=== PATIENT | male | born 2000 | race Caucasian/White ===

== ENCOUNTER 2025-05-01 11:07 | Emergency (ER) | payer OTHER, SELFPAY ==
[2025-05-01 11:27] VITALS: BP 149/99; PULSE 81; RESP 19; TEMP 36.7; O2SAT 98; BMI 25.2
--- NOTE | 2025-05-01 11:47 | XR_ITS ---
FINAL REPORT TECHNIQUE: 2 view chest CLINICAL HISTORY: productive cough, soa, lower rib pain COMPARISON: None FINDINGS: CHEST 2 VIEWS No acute pulmonary density is evident. There is no evidence of effusion or other pleural disease. The mediastinum has a normal appearance. The cardiac silhouette is unremarkable. IMPRESSION: Unremarkable chest exam. Reviewed, Interpreted and Dictated by Julius Santiago MD Transcribed by Mehreen Weston Authenticated and . [facility]
[2025-05-01 11:56] LABS: Coronavirus 19, PCR Not Detected (NotDetected); Influenza A, PCR Not Detected (NotDetected); Influenza B, PCR Not Detected (NotDetected)
--- OUTSIDE RECORDS SUMMARY | 2025-05-01 11:57 | XMS_ITS | Clinical Summary ---
Author Organization [facility] Address [address] [place] [address] Care Team Providers Care Airline Managerial Supervisor Name Role Phone Nisha Hernandez NP Primary Care Provider [phone] Allergies No known active allergies Medications buPROPion (WELLBUTRIN XL) 300 MG 24 hr tablet Take 300 mg by mouth in the morning. Active buPROPion (Wellbutrin XL) 300 MG 24 hr tabletIndication s:Depression, unspecified depression type,Anxiety Take one tablet (300 mg total) by mouth every morning 90 tablet 3 09/21/2024 09/22/19 26 Active Family History Medical History Relation Name Comments COPD Father Cancer Father Depression Father Heart disease Father Hypertension Father Arthritis Maternal Grandfather Asthma Maternal Grandfather Cancer Maternal Grandfather Depression Maternal Grandfather Depression Maternal Grandmother Hearing loss Maternal Grandmother Hypertension Maternal Grandmother Vision loss Maternal Grandmother Arthritis Mother Depression Mother Depression Sister Relation Name Status Comments Father Maternal Grandfather Maternal Grandmother Mother Sister Social History Tobacco Use Types Packs/Day Years Used Date Smoking Tobacco: Never Smokeless Tobacco: Former Tobacco Cessation:Counseling Given: Not Answered Alcohol Use Standard Drinks/Week Comments Not Currently 0 (1 standard drink = 0.6 oz pur e alcohol) Sex and Gender Information Value Date Recorded Sex Assigned at Not on file Legal Sex Male 7:54 AM CDT Gender Identity Not on file Sexual Orientation Not on file Last Filed Vital Signs Vital Sign Reading Time Taken Comments Blood Pressure 142/79 09/21/2024 8:34 AM CDT Pulse 73 09/21/2024 8:34 AM CDT Temperature 36.8 C (98.3 F) 09/21/2024 8:34 AM CDT Respiratory Rate 18 09/21/2024 8:34 AM CDT Oxygen Saturation 98% 09/21/2024 8:34 AM CDT Inhaled Oxygen Concentration - - Weight 78.9 kg (174 lb) 09/21/2024 8:34 AM CDT Height 172.7 cm (5' 8 ) 09/21/2024 8:34 AM CDT Body Mass Index 26.46 09/21/2024 8:34 AM CDT Plan of Treatment Health Maintenance Due Date Last Done Comments Hepatitis C 2017 Annual Wellness Visit 2019 INFLUENZA VACCINE 01/18/2025 Covid-19 Vaccine ( season) 2025 Insurance [employer] Member Subscriber Plan / Payer (Ef fective 2024-Present) Name:Alfredo Hernandez Relation to Subscriber:Self Name:Alfredo Hernandez Payer ID:[id number] (NAIC) Type:Not on file Address: [place] [phone] [employer] Member Subscriber Plan / Payer (Ef fective 2024-Present) Name:Alfredo Hernandez Relation to Subscriber:Self Name:Alfredo Hernandez Payer ID:[id number] (NAIC) Type:Not on file Address: [place] [id number] [place] [phone] Care Teams Airline Managerial Supervisor Relationship Specialty Start Date End Date Nisha Hernandez NP [address] [place], [address] PCP - General Family Medicine [employer]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
--- OUTSIDE RECORDS SUMMARY | 2025-05-01 11:57 | XMS_ITS | Patient Health Record ---
Author Organization [facility] Address [address] [place] [address] Care Team Providers Care Receptionist Doctor'S Office Name Role Phone PCP, NO Primary Care Provider Eber Garza Unavailable [phone] Reason For Referral No Information Medications Medication SIG (Take, Route, Fr equency, Duration) Notes Start Date End Date Status ibuprofen 400 mg 1 tab(s) orally ever y 6 hours; Duration: 30 days 04/07/2022 Active Social History Tobacco Use: Social History Observation Description Date Details (start date - stop date) Never Smoker NA - NA Smoking History Question Answer Notes Smoking Status NonSmoker Problems Problem Type SNOMED Code ICD Code Onset Dates Problem Status W/U Status Risk Notes Problem 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 Problem Pain in limb (46085686) Pain of left upper extremity (M79.602) Active confirmed Problem Pain in limb (34219806) Pain of right lower extremity (M79.604) Active confirmed Problem Skin sensation disturbance (45201281) Numbness of right foot (R20.0) Active confirmed Plan Of Treatment No Information Insurance Providers Payer Name Payer Address Payer Phone Subscriber Number Group Number Insured Name Patient Relationship to Insured Coverage Start Date Coverage End Date [employer] CLAIMS [address] [place], [place] [phone] [id number] MOISE OLIVA Natural Child - Insured has Financial Responsibility Medical (General) History Surgical History Surgery Date(Month/Year) Hospitalization History Reason Date(Month/Year) Admitted to [facility] 03/30/2022
--- NOTE | 2025-05-01 12:17 | HMH.EDGENADL ---
Discharge Plan Disposition Patient Disposition: Home, Self-Care Condition: Good Prescriptions Prescriptions: New ondansetron 4 mg tablet,disintegrating 4 mg PO Q6H PRN (Reason: nausea and vomiting) Qty: 12 0RF No Action NyQuil Liquicaps Capsule 2 cap PO Q8HP PRN (Reason: cough, congestion) Referrals Follow up/Referrals: Provider,Referral, MD [Primary Care Provider, Medical] - See instructions Activity Restrictions/Add. Instructions Additional Instructions/Restrictions: Stay well-hydrated. You may take Tylenol 1000 mg alternating with ibuprofen 800 mg every 3 hours as needed for pain. Each medicine must be must be 6 hours apart respectively. Return if you develop fevers and not amenable to pain medicines at home or if you develop any worsening cough, shortness of breath, chest pain or vomiting not able to be controlled by medications. Please follow up with your primary care provider in 2-3 days. Please return to ED if your symptoms worsen, change in location, change in severity, new symptoms develop or if you become concerned for your health. Clinical Impressions Clinical Impression: Viral infection, Dehydration Print Language Print Language: Sami Discharge ED Provider: Fernando Broussard General Adult HPI General Chief complaint: Upper Respiratory Infection Stated complaint: cough, congestion, SOA, cant sleep Time Seen by Provider: 05/01/25 12:17 Mode of Arrival: Family Vehicle Source of Information: Patient Description of Symptoms (Recalled from ER Triage Doc. by RN): Pt c/o sinus and chest congestion that began Tuesday (04/28). He reports exertional SOA. He also reports nausea with vomiting, last time this AM when trying to eat breakfast. Reports he is coughing up thick dark green sputum. Denies any significant PMH. He has been taking Dayquil/Nyquil capsules wo significant relief. Reports pain to anterior left lower ribs and posterior bilateral lower ribs when coughing. Reports difficulty sleeping d/t cough and congestion. History of Present Illness HPI narrative: Patient is a 25-year-old male with no significant past medical history who presents today due to concerns for cough, congestion, vomiting. He reports that his symptoms began Tuesday and have been persistent. He has tried Robitussin with some relief, but still wakes up in the middle the night coughing. He denies any lung issues or history of smoking. He reports that he has had several positive sick contacts at work with similar symptoms who have been out. He reports significant purulent sputum, and reports that after coughing he developed some pain in the left side of his ribs. He denies any consistent lower extremity edema, denies any abdominal pain or flank pain. Urinating appropriately, still eating and drinking some. With regular stools. Nonbloody vomiting he denies any consistent lower extremity edema, denies any abdominal pain or flank pain. Related Data Home Medications ?Medication ?Instructions ?Recorded ?Confirmed wevdliaczo-yyrpmdwvmlqawsh-thepbugaygjmxvub-acetaminophen 2 cap PO Q8HP PRN cough, congestion 05/01/25 05/01/25 capsule Previous Rx's ?Medication ?Instructions ?Recorded ondansetron 4 mg disintegrating 4 mg PO Q6H PRN nausea and 05/01/25 tablet vomiting #12 tabs Allergies Allergy/AdvReac Type Severity Reaction Status Date / Time No Known Allergies [facility]25 [facility] Dis[facility]: The information contained in this section may have been updated after the patient was seen, as this information can be updated by other users. Social History Smoking Status: Never smoker alcohol intake: never current occupational status: employed Travel in the last 8 weeks?: None ROS Obtained: Yes All systems reviewed & no additional complaints except as documented Physical Exam General General appearance: alert and in no apparent distress Head Head exam: atraumatic and normocephalic Eye Eye exam: Present PERRL and EOMI ENT ENT exam: Present normal oropharynx and mucous membranes dry Neck Neck exam: Present full ROM and trachea midline Chest Chest inspection: Present symmetric chest wall rise Respiratory Respiratory exam: Present normal lung sounds bilaterally; Absent stridor Cardiovascular Cardiovascular exam: Present regular rate and normal rhythm Abdominal Exam Abdominal exam: Present soft; Absent distention or tenderness Extremities Exam Extremities exam: Present full ROM Neurological Exam Neurological exam: Present alert and oriented X3 Psychiatric Psychiatric exam: Present normal mood Skin Skin exam: Present warm, dry and other (2-second capillary refill) Medical Decision Making Medical Records Screening: Per USPSTF and CDC recommendations, given the prevalence of disease in our region, it is our hospital?s policy to screen for HIV and viral Hepatitis for all patients aged 18 and over and those with ongoing risk factors. Alireza Inquiry Pt receiving controlled substance: No Vital Signs: 05/01/25 11:27 Temperature 98.1 F Temperature Source Oral Pulse Rate [Left] 81 Respiratory Rate 19 Blood Pressure [Right Arm] 149/99 H Blood Pressure Mean [Right Arm] 115 Blood Pressure Source [Right Arm] Automatic Cuff 02 Sat by Pulse Oximetry 98 Oxygen Delivery Method Room Air Lab Data Lab Results 05/01/25 11:38: SARS-CoV-2 (PCR) Not detected, Influenza A Untype (PCR) Not detected, Influenza Type B (PCR) Not detected 05/01/25 12:20: WBC 5.7, RBC 4.67, Hgb 16.0, Hct 44.3, MCV 94.9 H, MCH 34.3 H, MCHC 36.1 H, RDW 12.0, Plt Count 300, MPV 9.2, Neut % (Auto) 67.8, Lymph % (Auto) 23.8, [place] % (Auto) 7.2, Eos % (Auto) 0.7, Baso % (Auto) 0.3, Neut # (Auto) 3.9, Lymph # (Auto) 1.4, [place] # (Auto) 0.4, Eos # (Auto) 0.0, Baso # (Auto) 0.0, Sodium 137, Potassium 4.1, Chloride 97 L, Carbon Dioxide 30, Anion Gap 14.1, BUN 12, Creatinine 0.90, Estimated Creat Clear 132, Estimated GFR 102, Est GFR ( Amer) 123, Glucose 100, Calcium 9.9, Total Bilirubin 1.1, AST 45, ALT 38, Alkaline Phosphatase 99, Total Protein 8.8 H, Albumin 5.1 H, Globulin 3.7 H, Albumin/Globulin Ratio 1.4 05/01/25 12:20 05/01/25 12:20 Orders (Tests/Meds): ED MEDICATIONS Generic Name Dose Route Start Last Admin Trade Name Freq PRN Reason Stop Dose Admin Lactated Ringer's 1,000 mls @ 999 mls/hr 05/01/25 12:54 05/01/25 13:04 Lactated Ringer's 1000 Ml Bag IV 05/01/25 13:54 999 mls/hr .Q1H1M ONE Administration Discontinued Medications Generic Name Dose Route Start Last Admin Trade Name Freq PRN Reason Stop Dose Admin Ketorolac Tromethamine 15 mg 05/01/25 12:59 05/01/25 13:04 Ketorolac 15mg/Ml Vial IV 05/01/25 13:00 15 mg ONCE ONE Administration Ondansetron HCl 4 mg 05/01/25 12:57 05/01/25 13:04 Ondansetron 4mg/2ml Vial IV 05/01/25 12:58 4 mg ONCE ONE Administration ORDERS Category Date Time Status CXR 2 view (NOT portable) [XR chest 2V] Stat Exams 05/01/25 11:47 Taken Complete Blood Count Auto Diff Stat Lab 05/01/25 12:20 Completed Comprehensive Metabolic Panel Stat Lab 05/01/25 12:20 Completed MAG [Magnesium] Stat Lab 05/01/25 12:20 Received Rapid PCR Covid and Flu A/B Stat Lab 05/01/25 11:38 Completed Medical Decision Narrative: Patient is a 25 old male with no medical history presenting today with cough congestion and vomiting. Positive sick contacts. On arrival, he is afebrile hemodynamically stable no acute distress on exam warm slightly diminished perfusion with delayed capillary refill and dry mucous membranes. No increased work of breathing my examination lung sounds are clear to auscultation bilaterally. Heart is regular rate and rhythm. No rashes. No reproducible significant chest wall tenderness. No reproducible abdominal or flank tenderness. No lower extremity edema. Pulses are full. I have high suspicion for viral syndrome and with his congestion and vomiting especially given positive sick contacts. Low suspicion for pneumonia or pneumothorax given reassuring chest x-ray. He does appear somewhat dry, we will obtain hematologic labs to rule out electrolyte derangement and fluid resuscitate him. Not meet any criteria for sepsis at this time. Low suspicion for bacteremia or severe bacterial infection I independently interpreted the chest x-ray to demonstrate no acute cardiopulmonary abnormality. Hematologic labs reviewed demonstrate no TERRI no electrolyte derangement no evidence of anemia and no leukocytosis On reassessment after above interventions, patient reports improvement in symptoms that he is ambulatory by the emergency department tolerating oral intake. Remained stable on room air while here. High suspicion for viral syndrome. Will send with multimodal pain control at home. Strict return precautions, questions answered, patient amenable to plan and discharge Critical Care Critical Care Time Critical Care Time: No
[2025-05-01 12:56] LABS: Hematocrit 44.3 % (42.0-52.0); Hemoglobin 16.0 g/dL (14.1-18.0); Immature Granulocytes % 0.2 %; Mean Corpuscular HGB Conc 36.1 g/dL (31.8-35.4); Mean Corpuscular Hemoglobin 34.3 pg (27.0-31.2); Mean Corpuscular Volume 94.9 fl (80-94); Nucleated Red Blood Cells % 0 %; Platelet Count 300 K/mm3 (142-424); Red Blood Count 4.67 M/mm3 (4.60-6.20); Red Cell Distribution Width-SD 41.6 fL; White Blood Count 5.7 K/mm3 (4.8-10.8)
[2025-05-01 12:57] LABS: Alanine Aminotransferase 38 U/L (12-78); Albumin Level 5.1 g/dl (3.5-5.0); Albumin/Globulin Ratio 1.4 (1.1-1.8); Alkaline Phosphatase 99 U/L (38-126); Anion Gap 14.1 mEq/L (5-15); Aspartate Amino Transferase 45 U/L (17-59); Bilirubin,Total 1.1 mg/dl (0.2-1.3); Blood Urea Nitrogen 12 mg/dl (9-20); Calcium 9.9 mg/dl (8.4-10.2); Carbon Dioxide 30 mmol/L (22.0-30.0); Chloride 97 mmol/L (98-107); Creatinine Clearance Estimated 132 mL/min (50-200); Creatinine,Serum 0.90 mg/dl (0.66-1.25); Estimated Glomerular Filt Rate 102 ml/min (>60); GFR (African American) 123 ML/MIN (>60); Globulin 3.7 g/dL (1.3-3.2); Glucose 100 mg/dl (74-100); Potassium 4.1 mmoL/L (3.5-5.1); Sodium 137 mmol/L (136-145); Total Protein,Serum 8.8 g/dl (6.3-8.2)
[2025-05-01] MEDS: ONDANSETRON 4MG/2ML VIAL 4 MG IV (13:04)
[2025-05-01] MEDS: LACTATED RINGERS 1000ML 1,000 ML 999 ML IV (13:04)
[2025-05-01] MEDS: KETOROLAC 15MG/ML VIAL 15 MG IV (13:04)
[2025-05-01 14:00] LABS: Magnesium 1.5 mg/dl (1.6-2.3)
[2025-05-01 14:02] VITALS: BP 118/72; PULSE 68; RESP 18; TEMP 36.8; O2SAT 98
== END 2025-05-01 14:02 | disposition home or self-care (01) ==
PROVIDERS: Emergency Provider Emergency Medicine
DX: E86.0 Dehydration (principal); B34.9 Viral infection, unspecified
CPT/HCPCS: 71046; 80053; 83735; 85025; 87636; 96361; 96374; 96375; 99284; J1885; J2405; J7120